=== PATIENT | female | born 1975 | race Caucasian/White ===

== ENCOUNTER 2017-09-01 14:46 | Emergency (ER) | payer MEDICAID ==
--- NOTE | 2017-09-01 15:25 | ER Document Report ---
ED Medical Screen (RME) - General Chief Complaint: Vaginal Bleeding Stated Complaint: VAGINAL BLEEDING Time Seen by Provider: 09/01/17 15:17 Notes: RAPID MEDICAL EVALUATION DISCLOSURE I have seen this patient as part of a Rapid Medical Evaluation and, if applicable, placed any initially appropriate orders. The patient will be seen and fully evaluated, including a full history and physical exam, by a provider ( in Main ED or Fast Track) when a room becomes available. 42-year-old female recently placed on the Depo shot here with complaints of vaginal bleeding. When she initially received the injection, she bled for 1 straight month with abdominal cramping than the symptoms resolved. She received her second injection approximately 6 weeks ago, and she again started to have the same symptoms. She is here because "it is driving me crazy and my moods are swinging very badly". She is going through 5 tampons daily but she is replacing them when they are only "a little bit soaked" She endorses some lightheadedness as well. EXAM Clear to auscultation bilaterally Regular rate and rhythm Minimal suprapubic tenderness to palpation but not elsewhere TRAVEL OUTSIDE OF THE [place] IN LAST 30 DAYS: No - Related Data Allergies/Adverse Reactions: No Known Allergies Allergy (Verified 09/01/17 14:50) Physical Exam - Vital signs Vitals: Temp Pulse Resp BP Pulse Ox 97.9 F 72 16 140/82 H 100 09/01/17 14:52 09/01/17 14:52 09/01/17 14:52 09/01/17 14:52 09/01/17 14:52 Course - Vital Signs Vital signs: Temp Pulse Resp BP Pulse Ox 97.9 F 72 16 140/82 H 100 09/01/17 14:52 09/01/17 14:52 09/01/17 14:52 09/01/17 14:52 09/01/17 14:52
--- NOTE | 2017-09-01 15:42 | ER Document Report ---
ED GI/ - General Chief Complaint: Vaginal Bleeding Stated Complaint: VAGINAL BLEEDING Time Seen by Provider: 09/01/17 15:17 Mode of Arrival: Ambulatory Information source: Patient Notes: 42 yo female extremely frustrated and anxious by the vaginal bleeding for 3 weeks after the 2nd depo shot. New sexual partner. No hx std. NO fever or chills. No pelvic pain. TRAVEL OUTSIDE OF THE [place] IN LAST 30 DAYS: No - Related Data Allergies/Adverse Reactions: No Known Allergies Allergy (Verified 09/01/17 14:50) Past Medical History - General Information source: Patient - Social History Smoking Status: Current Every Day Smoker Chew tobacco use (# tins/day): No Frequency of alcohol use: None Drug Abuse: None Lives with: Family Family History: Reviewed & Not Pertinent Patient has suicidal ideation: No Patient has homicidal ideation: No Renal/ Medical History: Denies: Hx Peritoneal Dialysis Psychiatric Medical History: Reports: Hx Attention Deficit Hyperactivity Disorder, Hx Depression Surgical Hx: Negative Review of Systems - Review of Systems Constitutional: No symptoms reported EENT: No symptoms reported Cardiovascular: No symptoms reported Respiratory: No symptoms reported Gastrointestinal: No symptoms reported Genitourinary: No symptoms reported Female Genitourinary: See HPI Musculoskeletal: No symptoms reported Skin: No symptoms reported Hematologic/Lymphatic: No symptoms reported Neurological/Psychological: No symptoms reported Physical Exam - Vital signs Vitals: Temp Pulse Resp BP Pulse Ox 97.9 F 72 16 140/82 H 100 09/01/17 14:52 09/01/17 14:52 09/01/17 14:52 09/01/17 14:52 09/01/17 14:52 Interpretation: Normal - General General appearance: Appears well, Alert - HEENT Head: Normocephalic, Atraumatic Eyes: Normal Pupils: PERRL Neck: Supple - Respiratory Respiratory status: No respiratory distress Chest status: Nontender Breath sounds: Normal Chest palpation: Normal - Cardiovascular Rhythm: Regular Heart sounds: Normal auscultation Murmur: No - Abdominal Inspection: Normal Distension: No distension Bowel sounds: Normal Tenderness: Nontender Organomegaly: No organomegaly - Back Back: Normal, Nontender. No: CVA tenderness - Extremities General upper extremity: Normal inspection, Nontender, Normal color, Normal ROM , Normal temperature General lower extremity: Normal inspection, Nontender, Normal color, Normal ROM , Normal temperature, Normal weight bearing. No: Hector's sign - Neurological Neuro grossly intact: Yes Cognition: Normal Orientation: AAOx4 Calcium Coma Scale Eye Opening: Spontaneous Kizzy Coma Scale Verbal: Oriented Kizzy Coma Scale Motor: Obeys Commands Kizzy Coma Scale Total: 15 Speech: Normal Motor strength normal: LUE, RUE, LLE, RLE Sensory: Normal - Psychological Associated symptoms: Normal affect, Normal mood - Skin Skin Temperature: Warm Skin Moisture: Dry Skin Color: Normal Skin irregularity: negative: Rash Course - Re-evaluation Re-evalutation: 09/01/17 17:36 wet prep only blood, calling dr ocampo for advise as pt wants the bleeding to stop. Her Papa was normal in past year (hx Leep and HPV). cbc ok. U/A ok. Had to leave message on dr bishop phone. CBC is normal. test is negative. Wet prep is negative. 09/01/17 17:[address] Bishop who said to give her #42 Opcon 135 she takes for for 4 days, 3 for 3 days, 2 for 2 days, and 1 every day until it is gone and that should stop the bleeding. 09/01/17 17:48 09/01/17 17:55 Patient does not want to quit smoking so I discussed with her the risk of DVT and PE if she were to take estrogen pill. I told her I would not give her the OVCON because she does not want to quit smoking but we did discuss #15 Ativan and that she will [place] [facility] [place] increased level of anxiety. I also discussed with her other forms of control such as a diaphragm that is nonhormonal. - Vital Signs Vital signs: Temp Pulse Resp BP Pulse Ox 97.9 F 64 16 119/71 100 09/01/17 14:52 09/01/17 16:12 09/01/17 14:52 09/01/17 16:12 09/01/17 14:52 - Laboratory Result Diagrams: 09/01/17 15:53 Laboratory results interpreted by me: 09/01/17 09/01/17 15:53 15:53 WBC 12.7 H RDW 14.1 H Absolute Neutrophils 8.7 H Urine Protein 30 H Urine Ketones TRACE H Urine Bilirubin SMALL H Urine Urobilinogen 4.0 H Urine Ascorbic Acid 40 H Discharge - Discharge Clinical Impression: Vaginal bleeding after Depo shot, Anxiety Condition: Good Disposition: HOME, SELF-CARE Instructions: Estrogen ([facility]), Vaginal Bleeding ([facility]) Additional Instructions: I encourage you to quit smoking again See your provider at [facility] about this increased level of anxiety that are having To the emergency room any concerns See CORPORATE DIRECTOR for other forms of control Prescriptions: Lorazepam [Ativan 0.5 mg Tablet] 0.5 mg PO Q4 PRN #15 tab PRN Reason: Referrals: PADMINI BISHOP MD [ACTIVE STAFF] - Follow up as needed
[2017-09-01 16:08] LABS: ABSOLUTE BASOPHILS # (AUTO) 0.1 10^3/uL (0.0-0.2); ABSOLUTE EOSINOPHILS # (AUTO) 0.3 10^3/uL (0.0-0.6); ABSOLUTE LYMPHOCYTES (AUTO) 2.7 10^3/uL (0.5-4.7); ABSOLUTE NEUT (AUTO) 8.7 10^3/uL (1.7-8.2); BASOPHILS % (AUTO) 0.6 % (0-2); EOSINOPHILS % (AUTO) 2.1 % (0-6); HEMATOCRIT 45.2 % (36.0-47.0); HEMOGLOBIN 15.2 g/dL (12.0-15.5); MEAN CORPUSCULAR HGB CONC 33.6 g/dL (32.0-36.0); MEAN CORPUSCULAR VOLUME 95 fl (80-97); MONOCYTES % (AUTO) 7.6 % (3-13); PLATELET COUNT 389 10^3/uL (150-450); RED BLOOD COUNT 4.75 10^6/uL (3.72-5.28); RED CELL DISTRIBUTION WIDTH 14.1 % (11.5-14.0); SEGMENTED NEUTROPHILS % (AUTO) 68.7 % (42-78); TOTAL CELLS COUNTED % (AUTO) 100 %; WHITE BLOOD COUNT 12.7 10^3/uL (4.0-10.5)
[2017-09-01 16:13] VITALS: BP 119/71
[2017-09-01 16:23] LABS: APPEARANCE,URINE SLIGHTLY-CLOUDY; BILIRUBIN,URINE SMALL (NEGATIVE); CALCIUM OXALATE CRYSTALS,URINE MANY /HPF; GLUCOSE, URINE NEGATIVE (NEGATIVE); KETONES,URINE TRACE mg/dL (NEGATIVE); LEUKOCYTE ESTERASE,URINE NEGATIVE (NEGATIVE); NITRITE,URINE NEGATIVE (NEGATIVE); PROTEIN,URINE 30 mg/dL (NEGATIVE); URINE SPECIFIC GRAVITY 1.031
[2017-09-01 16:25] LABS: COLOR,URINE YELLOW
[2017-09-01 17:22] LABS: T.VAGINALIS (WET MOUNT) NO TRICHOMONAS SEEN; YEAST (WET MOUNT) NO YEAST SEEN
[2017-09-01 17:23] LABS: RBCS (WET MOUNT) 4+ RBCS SEEN; WBCS (WET MOUNT) RARE WBCS SEEN
[2017-09-01 18:54] LABS: CHLAM PCR NOT DETECTED (NOT DETECT); GON PCR NOT DETECTED (NOT DETECT)
== END 2017-09-01 18:14 | disposition home or self-care (01) ==
LOC: ER 14:46
DX: N93.8 Other specified abnormal uterine and vaginal bleeding (principal); F41.9 Anxiety disorder, unspecified; F17.200 Nicotine dependence, unspecified, uncomplicated
CPT/HCPCS: 36415; 81001; 81025; 85025; 87210; 87491; 87591; 99284

== ENCOUNTER 2017-09-08 19:13 | Emergency (ER) | payer MEDICAID ==
[2017-09-08 19:20] VITALS: BP 125/68
[2017-09-08] MEDS ORDERED: ACETAMINOPHEN 325 MG TABLET PO ONE (19:57)
[2017-09-08] MEDS ORDERED: DIPH/PERTUSS(ACELL)/TETANUS VAC/PF 0.5 ML SYR (>=10YO) IM ONE (19:57)
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
--- NOTE | 2017-09-08 20:19 | RADIOLOGY REPORT (SQ) ---
EXAM DESCRIPTION: TIBIA FIBULA RIGHT COMPLETED DATE/TIME: 09/08/2017 8:08 pm REASON FOR STUDY: injury COMPARISON: None. NUMBER OF VIEWS: Two views. TECHNIQUE: Two radiographic images acquired of the right tibia and fibula to include the knee and an kle in at least one projection. LIMITATIONS: None. FINDINGS: MINERALIZATION: Normal. BONES: No acute fracture or dislocation. No worrisome bone lesions. SOFT TISSUES: No obvious swelling or foreign body. OTHER: No other significant finding. IMPRESSION: NEGATIVE STUDY OF THE RIGHT TIBIA AND FIBULA. NO RADIOGRAPHIC EVIDENCE OF ACUTE INJURY. TECHNICAL DOCUMENTATION: JOB ID: [id number] [employer]- All Rights Reserved Reading location - IP/workstation name: [email or web address]
--- NOTE | 2017-09-08 20:28 | RADIOLOGY REPORT (SQ) ---
EXAM DESCRIPTION: FOOT LEFT COMPLETE COMPLETED DATE/TIME: 09/08/2017 8:08 pm REASON FOR STUDY: possible glass in foot COMPARISON: None NUMBER OF VIEWS: Three views. TECHNIQUE: AP, lateral and oblique radiographic images acquired of the left foot. LIMITATIONS: None. FINDINGS: MINERALIZATION: Normal. BONES: No acute fracture or dislocation. No worrisome bone lesions. JOINTS: Cannot entirely exclude calcaneal cuboid subluxation is suggested on the lateral view. It is possible that the appearance is created merely because of plantar flexion of the foot. SOFT TISSUES: No soft tissue swelling. No foreign body. OTHER: No other significant finding. IMPRESSION: Questionable calcaneocuboid subluxation as discussed above. TECHNICAL DOCUMENTATION: JOB ID: [id number] [employer]- All Rights Reserved Reading location - IP/workstation name: [email or web address]
--- NOTE | 2017-09-08 20:29 | RADIOLOGY REPORT (SQ) ---
EXAM DESCRIPTION: T SPINE AP/LAT COMPLETED DATE/TIME: 09/08/2017 8:15 pm REASON FOR STUDY: injury COMPARISON: None. NUMBER OF VIEWS: Two views. TECHNIQUE: AP and lateral radiographic images acquired of the thoracic spine. LIMITATIONS: None. FINDINGS: MINERALIZATION: Normal. ALIGNMENT: Mild scoliosis. VERTEBRAE: No fracture or bone lesion. Maintained height, normal segmentation. DISCS: No significant loss of height or significant narrowing. No large osteophytes. HARDWARE: None in the spine. MEDIASTINUM AND SOFT TISSUES: Normal heart size and aortic contour. No soft tissue abnormality. VISUALIZED LUNG FLORES: Clear. OTHER: No other significant finding. IMPRESSION: Mild scoliosis. TECHNICAL DOCUMENTATION: JOB ID: [id number] [employer]- All Rights Reserved Reading location - IP/workstation name: [email or web address]
--- NOTE | 2017-09-08 20:53 | RADIOLOGY REPORT (SQ) ---
EXAM DESCRIPTION: CT HEAD WITHOUT COMPLETED DATE/TIME: 09/08/2017 8:34 pm REASON FOR STUDY: injury COMPARISON: None. TECHNIQUE: Axial images acquired through the brain without intravenous contrast. Images reviewed wi th bone, brain and subdural windows. Additional sagittal and coronal reconstructions were generated. Images stored on PACS. All CT scanners at this facility use dose modulation, iterative reconstruction, and/or weight based d osing when appropriate to reduce radiation dose to as low as reasonably achievable (ALARA). [facility]: Dose Right [facility]: CareDose [facility]: Dose Right [facility]: Teradose 4D [facility]: [email or web address] RADIATION DOSE: CT Rad equipment meets quality standard of care and radiation dose reduction techniq ues were employed. CTDIvol: 64.6 mGy. DLP: 1163 mGy-cm. mGy. LIMITATIONS: None. FINDINGS: VENTRICLES: Normal size and contour. CEREBRUM: No masses. No hemorrhage. No midline shift. No evidence for acute infarction. Normal gra y/white matter differentiation. No areas of low density in the white matter. CEREBELLUM: No masses. No hemorrhage. No alteration of density. No evidence for acute infarction. EXTRAAXIAL SPACES: No fluid collections. No masses. ORBITS AND GLOBE: No intra- or extraconal masses. Normal contour of globe without masses. CALVARIUM: No fracture. PARANASAL SINUSES: No fluid or mucosal thickening. SOFT TISSUES: No mass or hematoma. OTHER: No other significant finding. IMPRESSION: NORMAL BRAIN CT WITHOUT CONTRAST. EVIDENCE OF ACUTE STROKE: NO. COMMENT: Quality ID # [id number]: Final reports with documentation of one or more dose reduction techniques (e.g., Automated exposure control, adjustment of the mA and/or kV according to patient size, use of iterative reconstruction technique) TECHNICAL DOCUMENTATION: JOB ID: [id number] [employer]- All Rights Reserved Reading location - IP/workstation name: [email or web address]
== END 2017-09-08 22:10 | disposition home or self-care (01) ==
LOC: ER 19:13
PROC: 0JCR0ZZ Extirpation of Matter from Left Foot Subcutaneous Tissue and Fascia, Open Approach (ICD-10-PCS; principal; 2017-09-08)
DX: S90.852A Superficial foreign body, left foot, initial encounter (principal); S09.90XA Unspecified injury of head, initial encounter; Y04.0XXA Assault by unarmed brawl or fight, initial encounter; Y92.009 Unspecified place in unspecified non-institutional (private) residence as the place of occurrence of the external cause; Z23 Encounter for immunization
CPT/HCPCS: 99284; 90471; 73630; 72070; 73590; 70450; 90715; 20103; J3490

== ENCOUNTER 2019-01-12 16:53 | Emergency (ER) | payer BC, MEDICAID, OTHER ==
[2019-01-12] MEDS ORDERED: KETOROLAC TROMETHAMINE INJ/PF 30 MG/1 ML SDV IV ONE (17:48)
[2019-01-12] MEDS ORDERED: AMPICILLIN SOD/SULBACTAM 3 GM VIAL IV ONE (17:48)
[2019-01-12] MEDS ORDERED: DIPH/PERTUSS(ACELL)/TETANUS VAC/PF 0.5 ML SYR (>=10YO) IM ONE (17:48)
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
--- NOTE | 2019-01-12 18:27 | RADIOLOGY REPORT (SQ) ---
EXAM DESCRIPTION: FINGER RIGHT COMPLETED DATE/TIME: 01/12/2019 6:17 pm REASON FOR STUDY: animal bite r 2nd finger COMPARISON: None. NUMBER OF VIEWS: Three views. TECHNIQUE: AP, lateral, and oblique images acquired of the right second finger. LIMITATIONS: None. FINDINGS: MINERALIZATION: Normal. BONES: No acute fracture or dislocation. No worrisome bone lesions. SOFT TISSUES: There is mild soft tissue swelling in the 2nd digit. OTHER: No other significant finding. IMPRESSION: Soft tissue swelling. No osseous abnormality. COMMENT: SITE OF TRAUMA/COMPLAINT MARKED/STAMP COMPLETED: Yes TECHNICAL DOCUMENTATION: JOB ID: [id number] [employer]- All Rights Reserved Reading location - IP/workstation name: [email or web address]
[2019-01-12 19:32] VITALS: BP 104/80
== END 2019-01-12 19:32 | disposition home or self-care (01) ==
LOC: ER 16:53
DX: L03.119 Cellulitis of unspecified part of limb (principal); S61.250A Open bite of right index finger without damage to nail, initial encounter; W64.XXXA Exposure to other animate mechanical forces, initial encounter; Y92.009 Unspecified place in unspecified non-institutional (private) residence as the place of occurrence of the external cause; F17.200 Nicotine dependence, unspecified, uncomplicated
CPT/HCPCS: 73140; J0295; J1885; 96365; 96375; 99283